=== PATIENT | male | born 2000 | race Caucasian/White ===

== ENCOUNTER 2023-08-16 12:43 | Day surgery (SDC) | payer OTHER ==
[2023-08-16] VITALS (21 sets, daily range): BP systolic 144–165; BP diastolic 81–106; PULSE 79–106; RESP 13–25; TEMP 98.7; O2SAT 90–100
[~2023-08-16] VITALS: Ht 177.8 cm; Wt 143.2 kg
[~2023-08-16 12:43] MED LIST: BUPIVAcaine 2.5mg/ml inj 50ml vial (contains preservative) ONE; LIDOcaine 1% 30ml preserv. free vial ONE; NO HOME MEDS; ceFAZolin inj. 3,000 MG in normal saline 100ml IV soln 100 ML IV ONE; famotidine 20mg tablet PO ONE; ringers solution, lacted 1,000 ML IV SCH
[2023-08-16] MEDS ORDERED: sevoflurane 250ml liquid IH ONE (16:09)
[2023-08-16] MEDS ORDERED: glycopyrrolate 0.2mg/ml inj ONE (16:09)
[2023-08-16] MEDS ORDERED: neostigmine methylsulfate 1 MG/ML 10ml vial ONE (16:09)
[2023-08-16] MEDS ORDERED: midazolam 1 mg/ML 2ml injection ONE ×2 (16:13→16:14)
[2023-08-16] MEDS ORDERED: fentaNYL /PF 50mcg/ml 5ml ampule ONE (16:14)
[2023-08-16] MEDS ORDERED: BUPIVAcaine/PF 2.5mg/ml (0.25%) 10ml vial ONE (16:28)
[2023-08-16] MEDS ORDERED: BUPIVACAINE liposomal/PF 13.3 MG/ML vial IM ONE ×2 (16:28→16:52)
[2023-08-16] MEDS ORDERED: morphine 2 MG/ML inj. syringe IV PRN (16:30)
[2023-08-16] MEDS ORDERED: morphine 4 MG/ML inj SYRINge IV PRN (16:30)
[2023-08-16] MEDS ORDERED: proCHLORperazine 10 MG/2 ml inj IV PRN (16:30)
[2023-08-16] MEDS ORDERED: meperidine/PF 25mg/ml syringe IV PRN ×2 (16:30)
[2023-08-16] MEDS ORDERED: ondansetron/PF 4mg/2ml inj IV PRN (16:30)
[2023-08-16] MEDS ORDERED: ringers solution, lacted 1,000 ML IV SCH (16:30)
[2023-08-16] MEDS ORDERED: LIDOcaine 1% 30ml preserv. free vial IJ ONE (16:52)
[2023-08-16] MEDS ORDERED: BUPIVAcaine/PF 2.5 mg/ml (0.25%) 30ml vial IJ ONE ×2 (16:52)
[2023-08-16] MEDS ORDERED: LIDOcaine 1%/PF 5ML 10 MG/ML VIAL ONE (17:02)
[2023-08-16] MEDS ORDERED: dexamethasone sod phosphate 4mg/ml inj. ONE (17:02)
[2023-08-16] MEDS ORDERED: acetaminophen 1,000mg/100ml IV 100 ML IV ONE (17:02)
[2023-08-16] MEDS ORDERED: ondansetron/PF 4mg/2ml inj ONE (17:02)
[2023-08-16] MEDS ORDERED: rocuronium 10mg/ml inj IV ONE (17:02)
[2023-08-16] MEDS ORDERED: propofol inj 20 ML IV ONE (17:02)
[2023-08-16] MEDS ORDERED: oxyCODONE/APAP 5-325mg tablet PO PRN (18:55)
[2023-08-16] MEDS: meperidine/PF 25mg/ml syringe IV PRN ×3 (19:05→20:10)
[2023-08-16] MEDS ORDERED: ketorolac trometh. 30mg/ml inj. IV ONE (20:15)
[2023-08-16] MEDS ORDERED: ipratropium/albuterol 3ml nebule NEB PRN (20:25)
[2023-08-19] MEDS ORDERED: DIPH-186 PO (10:58)
== END 2023-08-16 21:21 | disposition home or self-care (01) ==
LOC: PAS 12:43
PROVIDERS: ATTEND Surgery
DX: K43.0 Incisional hernia with obstruction, without gangrene (principal); F17.210 Nicotine dependence, cigarettes, uncomplicated; F17.220 Nicotine dependence, chewing tobacco, uncomplicated; E66.01 Morbid (severe) obesity due to excess calories; Z68.42 Body mass index [BMI] 45.0-49.9, adult; Z98.890 Other specified postprocedural states; Z79.899 Other long term (current) drug therapy
CPT/HCPCS: 49618; 64488; 82948; 94640; C1781; C9290; J0131; J0690; J1100; J1885; J2175; J2250; J2405; J2704; J2710; J3010; J3490; J7030; J7120; Z7506; Z7508; Z7512; A4215; A4615; A4618

== ENCOUNTER → 2023-08-19 | Emergency (ER) | payer OTHER ==
[~2023-08-19] VITALS: Ht 177.8 cm; Wt 145.7 kg
[~2023-08-19] MED LIST changes: -BUPIVAcaine 2.5mg/ml inj 50ml vial (contains preservative) ONE; +DIPH-186 PO; -LIDOcaine 1% 30ml preserv. free vial ONE; -ceFAZolin inj. 3,000 MG in normal saline 100ml IV soln 100 ML IV ONE; -famotidine 20mg tablet PO ONE; +normal saline 1000ML IV soln IVB ONE; -ringers solution, lacted 1,000 ML IV SCH
[2023-08-19 08:14] LABS: BASOPHILS # (AUTO) 0.1 X10'3 (0-0.2); BASOPHILS % (AUTO) 0.6 % (0-1); EOSINOPHILS # (AUTO) 0.2 X10'3 (0-0.9); EOSINOPHILS % (AUTO) 1.8 % (0-6); HEMATOCRIT 46.5 % (42.0-52.0); HEMOGLOBIN 15.6 g/dl (14.0-17.9); LYMPHOCYTES # (AUTO) 1.4 X10'3 (1.1-4.8); LYMPHOCYTES % (AUTO) 12.6 % (21-51); MEAN CORPUSCULAR HEMOGLOBIN 28.6 PG (27.0-31.0); MEAN CORPUSCULAR HGB CONC 33.7 g/dL (33.0-36.5); MEAN CORPUSCULAR VOLUME 84.9 FL (78-98); MEAN PLATELET VOLUME 8.8 FL (7.4-10.4); MONOCYTES # (AUTO) 1.2 X10'3 (0-0.9); MONOCYTES % (AUTO) 11.1 % (2-12); NEUTROPHILS # (AUTO) 8.3 X10'3 (1.8-7.7); NEUTROPHILS % (AUTO) 73.9 % (42-75); PLATELET COUNT 263 X10'3 (140-440); RED BLOOD COUNT 5.47 X10'6 (4.70-6.10); RED CELL DISTRIBUTION WIDTH 13.4 % (11.5-14.5); WHITE BLOOD COUNT 11.2 X10'3 (4.5-11.0)
[2023-08-19 08:24] LABS: BILIRUBIN,URINE NEGATIVE (Neg); CLARITY,URINE CLEAR (Clear); COLOR,URINE YELLOW (Yellow); GLUCOSE, URINE NEGATIVE (Neg); KETONES,URINE NEGATIVE (Neg); LEUKOCYTE ESTERASE ,URINE NEGATIVE (Neg); NITRITES, URINE NEGATIVE (Neg); OCCULT BLOOD,URINE NEGATIVE (Neg); PH,URINE 5.5 (4.8-8.0); PROTEIN,URINE NEGATIVE (Neg); UROBILINOGEN,URINE 0.2 E.U/dL (0.2-1.0)
[2023-08-19 08:27] LABS: UA COLLECTION TYPE CLN CATCH MIDSTREAM
[2023-08-19 08:29] LABS: ALANINE AMINOTRANSFERASE 56 U/L (12-78); ALBUMIN 3.7 G/DL (3.4-5.0); ALBUMIN/GLOBULIN RATIO 0.9 (1.1-1.5); ALKALINE PHOSPHATASE 93 IU/L (46-116); ANION GAP 11 (8-16); ASPARTATE AMINO TRANSFERASE 24 U/L (10-37); BILIRUBIN,TOTAL 0.6 MG/DL (0.1-1.0); BLOOD UREA NITROGEN 11 MG/DL (7-18); BUN/CREATININE RATIO 12.8 (10.0-20.0); CALCIUM 9.1 MG/DL (8.5-10.1); CHLORIDE 102 MMOL/L (99-107); CREATININE 0.86 MG/DL (0.60-1.10); GLUCOSE 119 MG/DL (70-104); LIPASE 17 U/L (16-77); POTASSIUM 3.9 MMOL/L (3.5-5.1); SODIUM 135 MMOL/L (135-145); TOTAL CARBON DIOXIDE 22.2 MMOL/L (24-32); TOTAL PROTEIN 7.7 G/DL (6.4-8.2); eCRCL 138 ML/MIN; eGFR > 90 ML/MIN
[2023-08-19 10:33] LABS: C DIFF ANTIGEN NEGATIVE (NEGATIVE); C DIFF SPECIMEN=DIARRHEA? ACCEPTABLE; C DIFFICILE TOXINS A&B NEGATIVE (Neg)
[2023-08-19 11:08] VITALS: BP 130/70; PULSE 78; RESP 18; TEMP 98; O2SAT 99
== END | disposition home or self-care (01) ==
LOC: ER 07:30
DX: R19.7 Diarrhea, unspecified (principal)
CPT/HCPCS: 36415; 80053; 81003; 83690; 85025; 87045; 87046; 87324; 87449; 89055; 96360; 99283; J7030; 99284